=== PATIENT | female | born 1940 | race Caucasian/White ===

== ENCOUNTER 2016-08-01 06:57 | Outpatient (CLI) | payer MEDICARE, OTHER | END 2016-08-01 06:58 | disposition home or self-care (01) | DX: I25.10 Atherosclerotic heart disease of native coronary artery without angina pectoris (principal); I10 Essential (primary) hypertension ==

== ENCOUNTER 2018-07-30 10:36 | Outpatient (CLI) | payer MEDICARE, OTHER ==
--- NOTE | 2018-07-30 11:57 | Mammography Report ---
Reason: MASTALGIA Procedure Date: 07/30/2018 Accession Number: [id number] / [id number] Procedure: DEEP - Diagnostic Dig Bilat CPT Code: FULL RESULT: EXAM: Diagnostic Dig Bilat DATE: 07/30/2018 11:37 AM CLINICAL HISTORY: Diffuse right breast pain for one year. TECHNIQUE: Bilateral CC, MLO views were obtained. COMPARISON: 12/09/2015 through 02/29/2012. FINDINGS: The breasts demonstrate scattered fibroglandular densities bilaterally. There are coarse typically benign calcifications. There are typically benign vascular calcifications. No suspicious calcifications, architectural distortion or masses identified. IMPRESSION: Benign findings RECOMMENDATION: Recommend routine annual Screening mammography unless otherwise clinically indicated. BIRADS CATEGORY 2: Benign findings STANDARD QUALIFYING STATEMENTS: 1. This examination was not reviewed with the aid of Computer-Aided Detection (CAD). 2. A negative or benign imaging report should not delay biopsy if clinically suspicious findings are present. Consider surgical consultation if warrented. More than 5% of cancers are not identified by imaging. 3. Dense breasts may obscure an underlying neoplasm. 4. This examination was reviewed with the aid of 3D imaging (tomography).
== END 2018-07-30 10:37 | disposition home or self-care (01) ==
LOC: DI 10:36
PROVIDERS: ATTEND Physician Assistant Medical
DX: N64.4 Mastodynia (principal)
CPT/HCPCS: 77066

== ENCOUNTER 2018-10-31 08:51 | Outpatient (CLI) | payer MEDICARE, OTHER ==
--- NOTE | 2018-10-31 13:15 | XRAY Report ---
Reason: HIP PAIN,LEFT Procedure Date: 10/31/2018 Accession Number: [id number] / [id number] Procedure: WCP - Hip w/Pelvis 2-3V LT CPT Code: FULL RESULT: EXAM: LEFT HIP RADIOGRAPHY EXAM DATE: 10/31/2018 09:03 AM. CLINICAL HISTORY: Hip pain, left. COMPARISON: 03/06/2008 11:54 AM. TECHNIQUE: AP pelvis and AP of the left hip as well as frog view of the left hip. views. FINDINGS: Bones: Redemonstration of status post right total hip arthroplasty with interval development of marked osseous resorption around the acetabular cup component of the prosthesis. No acute fracture is detected. There is questionable breakthrough of the posterior medial acetabular wall and potential impending fracture, evaluation limited by regional osteopenia. The bones are qualitatively osteopenic; this limits evaluation for underlying fractures or masses. Joints: Moderate narrowing of the left femoral acetabular joint. Soft Tissues: Normal. No soft tissue swelling. IMPRESSION: Osseous resorption surrounding the acetabular cup component is concerning for impending hardware failure and risk for a pathologic fracture. CASIEA The call report notification system was initiated by Dr. Capo Hardwick at 01:05 PM on 10/31/2018. ADDENDUM: 10/31/18 13:21 The above call report findings were discussed with Radha Dias by Dr. Capo Hardwick at 01:21 PM on 10/31/2018. ADDENDUM: 11/06/18 15:46 The addendum is in clarification of the study performed. The study performed is an AP view of the pelvis as well as a frog leg view of the left hip. Given that the patient has a right total hip replacement, an additional AP view showing the distal stem of the right hip prosthesis was also obtained. AP evaluation of the left hip joint is performed based on visualization of the AP pelvis. The above call report findings were discussed with Radha Dias by Dr. Capo Hardwick at 01:21 PM on 10/31/2018.
== END 2018-10-31 08:52 | disposition home or self-care (01) ==
LOC: DI.WCP 08:51
PROVIDERS: ATTEND Physician Assistant Medical
DX: M17.12 Unilateral primary osteoarthritis, left knee (principal); Z96.641 Presence of right artificial hip joint

== ENCOUNTER 2019-01-05 22:33 | Emergency (ER) | payer MEDICARE, OTHER ==
[2019-01-05 23:19] LABS: BILIRUBIN,URINE NEGATIVE (NEGATIVE); GLUCOSE, URINE (UA) NEGATIVE (NEGATIVE); KETONES,URINE (UA) NEGATIVE (NEGATIVE); LEUKOCYTE ESTERASE, URINE LARGE (NEGATIVE); NITRITE,URINE NEGATIVE (NEGATIVE); OCCULT BLOOD,URINE SMALL (NEGATIVE); PH,URINE 6.5 PH (5.0-7.5); PROTEIN,URINE NEGATIVE (NEGATIVE); UROBILINOGEN,URINE 0.2 (NORMAL) E.U./dL (NORMAL)
[2019-01-05 23:21] LABS: BASOPHILS % (AUTO) 0.3 %; EOSINOPHILS # (AUTO) 0.2 10^3/uL (0.0-0.7); EOSINOPHILS % (AUTO) 1.6 %; HGB - HEMOGLOBIN 13.2 g/dL (12.0-16.0); LYMPHOCYTES # (AUTO) 1.6 10^3/uL (1.5-3.5); LYMPHOCYTES % (AUTO) 13.9 %; MEAN CORPUSCULAR HEMOGLOBIN 30.6 pg (27.0-31.0); MEAN CORPUSCULAR HGB CONC 33.4 g/dL (32.0-36.0); MEAN CORPUSCULAR VOLUME 91.4 fL (81.0-99.0); MEAN PLATELET VOLUME 9.1 fL (7.9-10.8); MONOCYTES # (AUTO) 1.5 10^3/uL (0.0-1.0); MONOCYTES % (AUTO) 12.9 %; NEUTROPHILS # (AUTO) 8.2 10^3/uL (1.5-6.6); PLT - PLATELET COUNT 199 10^3/uL (130-450); RED BLOOD COUNT 4.32 10^6/uL (4.20-5.40); RED CELL DISTRIBUTION WIDTH 13.8 % (12.0-15.0); WHITE BLOOD COUNT 11.5 x10^3/uL (4.8-10.8)
[2019-01-05 23:22] LABS: CLARITY,URINE CLEAR (CLEAR)
[2019-01-05 23:25] LABS: BACTERIA,URINE Few /HPF (None Seen); RBC,URINE 0-5 /HPF (0-5); SQUAMOUS EPITHELIAL CELL,UR NONE SEEN (<= Few)
[2019-01-05 23:37] LABS: ALBUMIN 4.2 g/dL (3.2-5.5); ALBUMIN/GLOBULIN RATIO 1.4 (1.0-2.2); BILIRUBIN,TOTAL 1.2 mg/dL (0.2-1.0); CALCIUM 9.4 mg/dL (8.5-10.3); CREATININE 0.8 mg/dL (0.4-1.0); TOTAL PROTEIN 7.2 g/dL (6.7-8.2)
--- NOTE | 2019-01-06 | ED Physician Documentation ---
PD HPI ABD PAIN - Stated complaint Stated Complaint: LOWER ABD CRAMPING - Chief complaint Chief Complaint: Abd Pain - History obtained from History obtained from: Patient - History of Present Illness Timing - onset: Yesterday (30 hours ago) Timing - details: Waxing and waning Pain level max: 6 Pain level now: 2 Quality: Pain Location: All over / everywhere Radiation: No: Chest, , Lower back, Left flank, Left shoulder, Right flank, Right shoulder, Upper back Improved by: Other (nothing) Worsened by: Other (no apparent exacerbating factors) Associated symptoms: No: Fever, Nausea, Vomiting, Diarrhea, Constipation Similar symptoms before: Has not had sx before Recently seen: Not recently seen - Additional information Additional information: c/o waves of abdominal cramping pain, waxing and waning since 24-36 hours ago. no inciting event, and no apparent exacerbating or ameliorating factors. Review of Systems Constitutional: reports: Reviewed and negative Cardiac: reports: Reviewed and negative Respiratory: reports: Reviewed and negative GI: reports: Abdominal Pain. denies: Abdominal Swelling, Nausea, Vomiting, Constipation, Diarrhea : denies: Dysuria, Frequency Skin: denies: Rash Musculoskeletal: denies: Back pain PD PAST MEDICAL HISTORY - Past Medical History Past Medical History: Yes Cardiovascular: High cholesterol, Coronary artery disease, [place], Other Respiratory: None Endocrine/Autoimmune: None GI: None : None HEENT: None Psych: None Musculoskeletal: Other Derm: None - Past Surgical History Past Surgical History: Yes General: Colonoscopy Ortho: Hip replacement Cardiovascular: Coronary stent, Valve replacement, Cardiac catheterization HEENT: Tonsil/Adenoidectomy - Present Medications Home Medications: Ambulatory Orders Medication Instructions Recorded Confirmed Metoprolol Succinate [Toprol Xl] 12.5 mg PO DAILY 03/11/13 01/05/19 Aspirin [Aspir 81] 2 tab PO BID 07/08/15 01/05/19 Lisinopril 2.5 mg PO DAILY 07/08/15 01/05/19 Triamterene/Hydrochlorothiazid 1 tab PO DAILY 12/04/15 01/05/19 [Maxzide 37.5 mg-25 mg Tablet] Amox/Clav 875/125 [Augmentin] 1 each PO Q12H #13 tablet 01/06/19 - Allergies Allergies/Adverse Reactions: Allergies Allergy/AdvReac Type Severity Reaction Status Date / Time No Known Drug Allergies Allergy Verified 01/05/19 22:43 - Social History Does the pt smoke?: No Smoking Status: Never smoker Does the pt drink ETOH?: No Does the pt have substance abuse?: No - Immunizations Immunizations are current?: Yes - POLST Patient has POLST: No PD ED PE NORMAL - Vitals Vital signs reviewed: Yes - General General: Alert and oriented X 3, No acute distress, Well developed/nourished - HEENT HEENT: Moist mucous membranes - Neck Neck: Supple, no meningeal sign - Cardiac Cardiac: RRR, No murmur, No gallop, No rub - Respiratory Respiratory: No respiratory distress, Clear bilaterally - Abdomen Abdomen: Normal bowel sounds, Soft, Non tender, Non distended, No organomegaly - Back Back: No CVA TTP - Derm Derm: Normal color, Warm and dry, No rash - Extremities Extremities: No edema Results - Vitals Vitals: Oxygen O2 Source Room air - Labs Labs: Microbiology 01/05/19 23:11 Urine Culture - Final Urine,Clean Catch >100,000 COLONIES/ML Polymicrobial growth including potential pathogens. This is suggestive of skin or other contamination. Laboratory Tests 01/05/19 01/05/19 01/05/19 22:15 22:15 23:11 WBC 11.5 H RBC 4.32 Hgb 13.2 Hct 39.5 MCV 91.4 MCH 30.6 MCHC 33.4 RDW 13.8 Plt Count 199 MPV 9.1 Neut # (Auto) 8.2 H Lymph # (Auto) 1.6 [place] # (Auto) 1.5 H Eos # (Auto) 0.2 Baso # (Auto) 0.0 Absolute Nucleated RBC 0.00 Nucleated RBC % 0.0 Sodium 133 L Potassium 3.6 Chloride 96 L Carbon Dioxide 24 Anion Gap 13.0 BUN 15 Creatinine 0.8 Estimated GFR (MDRD) 70 L Glucose 113 H Calcium 9.4 Total Bilirubin 1.2 H AST 29 ALT 20 Alkaline Phosphatase 52 Total Protein 7.2 Albumin 4.2 Globulin 3.0 Albumin/Globulin Ratio 1.4 Lipase 36 Urine Color YELLOW Urine Clarity CLEAR Urine pH 6.5 Ur Specific [place] <=1.005 Urine Protein NEGATIVE Urine Glucose (UA) NEGATIVE Urine Ketones NEGATIVE Urine Occult Blood SMALL H Urine Nitrite NEGATIVE Urine Bilirubin NEGATIVE Urine Urobilinogen 0.2 (NORMAL) Ur Leukocyte Esterase LARGE H Urine RBC 0-5 Urine WBC 11-25 H Ur Squamous Epith Cells NONE SEEN Urine Bacteria Few Ur Microscopic Review INDICATED Urine Culture Comments INDICATED PD MEDICAL DECISION MAKING - ED course Complexity details: reviewed results, re-evaluated patient, considered differential, d/w patient, d/w family ED course: nontender abdominal exam and NAD during H+P. minimal leukocytosis, otherwise nonspecific/unremarkable serum tests. UA suggests UTI and will treat for UTI although I explained to patient that her symptoms do not particularly suggest this as the etiology of her symptoms. she has no RLQ tenderness, and pain is episodic, making appendicitis unlikely. diverticulitis considered, but she has little/no tenderness on exam (on one exam, indicated minimal TTP LUQ, but not on subsequent reexams). the augmentin should provide coverage for urinary pathogens as well as possible diverticulitis, and imaging can be deferred until/unless symptoms persist, recur, or worsen. Departure - Departure Disposition: 01 Home, Self Care Clinical Impression: Urinary tract infection, Abdominal pain Condition: Good Health Concerns: abdominal pain Plan of Treatment: antibiotic as prescribed Care Goals: resolution of symptoms Assessment: see diagnoses Instructions: ED Abdominal Pain Unkn Cause, ED UTI Cystitis Female Follow-Up: Radha Dias PA-C [Primary Care Provider] - (3-4 days if symptoms have not resolved) Prescriptions: Amox/Clav 875/125 [Augmentin] 1 each PO Q12H #13 tablet Discharge Date/Time: 01/06/19 00:32
[2019-01-06] MEDS ORDERED: AMOX/CLAV 875 MG/125 MG TABLET PO STA (00:12)
[2019-01-06 00:32] VITALS: BP 153/74
== END 2019-01-06 00:32 | disposition home or self-care (01) ==
LOC: ED 22:33
DX: N39.0 Urinary tract infection, site not specified (principal); I25.10 Atherosclerotic heart disease of native coronary artery without angina pectoris; E78.00 Pure hypercholesterolemia, unspecified; I25.2 Old myocardial infarction; Z95.2 Presence of prosthetic heart valve; Z96.649 Presence of unspecified artificial hip joint; Z79.82 Long term (current) use of aspirin
CPT/HCPCS: 36415; 80053; 81001; 83690; 85025; 87086; 99283; A9270; 81003

== ENCOUNTER 2019-05-16 11:59 | Outpatient (CLI) | payer MEDICARE, OTHER ==
--- NOTE | 2019-05-17 14:05 | XRAY Report ---
Reason: RIGHT HIP PAIN Procedure Date: 05/16/2019 Accession Number: [id number] / [id number] Procedure: WCP - Hip 1 View RT CPT Code: Final Report FULL RESULT: EXAM: RIGHT HIP RADIOGRAPHY EXAM DATE: 05/16/2019 01:58 PM. CLINICAL HISTORY: RIGHT HIP PAIN. COMPARISON: HIP W/PELVIS 2-3V LT 10/31/2018 8:46 AM. TECHNIQUE: 2 views. FINDINGS: Postoperative changes from a right hip arthroplasty are again seen. No periprosthetic lucency is seen to suggest loosening. The left hip is seated. No acute fracture or dislocation is present. Phleboliths are seen in the pelvis. Surgical clips are seen in the medial left thigh. The visible bowel gas pattern is nonobstructive. The sacroiliac joints are within normal limits. IMPRESSION: Postoperative changes from the right hip arthroplasty. No acute fracture or dislocation. RADIA
== END 2019-05-16 23:59 | disposition home or self-care (01) ==
LOC: DI.WCP 11:59
PROVIDERS: ATTEND Physician Assistant Medical
DX: M25.551 Pain in right hip (principal); Z96.641 Presence of right artificial hip joint

== ENCOUNTER 2019-07-15 08:00 | Outpatient (CLI) | payer MEDICARE, OTHER ==
[2019-07-15 18:17] LABS: BASOPHILS % (AUTO) 0.7 %; EOSINOPHILS # (AUTO) 0.2 10^3/uL (0.0-0.7); EOSINOPHILS % (AUTO) 4.6 %; HGB - HEMOGLOBIN 13.9 g/dL (12.0-16.0); LYMPHOCYTES # (AUTO) 1.2 10^3/uL (1.5-3.5); LYMPHOCYTES % (AUTO) 26.3 %; MEAN CORPUSCULAR HEMOGLOBIN 31.5 pg (27.0-31.0); MEAN CORPUSCULAR HGB CONC 33.3 g/dL (32.0-36.0); MEAN CORPUSCULAR VOLUME 94.6 fL (81.0-99.0); MEAN PLATELET VOLUME 10.1 fL (7.9-10.8); MONOCYTES # (AUTO) 0.7 10^3/uL (0.0-1.0); MONOCYTES % (AUTO) 14.8 %; NEUTROPHILS # (AUTO) 2.4 10^3/uL (1.5-6.6); NEUTROPHILS % (AUTO) 53.4 %; PLT - PLATELET COUNT 198 10^3/uL (130-450); RED BLOOD COUNT 4.41 10^6/uL (4.20-5.40); RED CELL DISTRIBUTION WIDTH 13.9 % (12.0-15.0); WHITE BLOOD COUNT 4.5 x10^3/uL (4.8-10.8)
[2019-07-15 18:49] LABS: ALBUMIN/GLOBULIN RATIO 1.5 (1.0-2.2); BILIRUBIN,TOTAL 0.8 mg/dL (0.2-1.0); CALCIUM 9.2 mg/dL (8.5-10.3); CREATININE 0.9 mg/dL (0.4-1.0); T4 (THYROXINE) 6.18 ug/dL (6.09-12.23); TOTAL PROTEIN 6.6 g/dL (6.7-8.2)
[2019-07-15 18:51] LABS: THYROID STIMULATING HORMONE 2.09 uIU/mL (0.34-5.60)
== END 2019-07-15 23:59 | disposition home or self-care (01) ==
LOC: LAB.WCP 08:00
PROVIDERS: ATTEND Family Medicine
DX: I25.10 Atherosclerotic heart disease of native coronary artery without angina pectoris (principal); R53.1 Weakness; R26.81 Unsteadiness on feet; E03.9 Hypothyroidism, unspecified; I10 Essential (primary) hypertension
CPT/HCPCS: 36415; 80053; 82607; 82746; 83735; 84100; 84436; 84443; 84480; 85025

== ENCOUNTER 2019-07-17 13:01 | Outpatient (CLI) | payer MEDICARE, OTHER ==
[2019-07-17] MEDS ORDERED: GADOBUTROL 7.5 MMOL/7.5 ML VIAL ONE (13:18)
[2019-07-17] MEDS ORDERED: GADOBUTROL 7.5 MMOL/7.5 ML VIAL IVP ONE (14:01)
--- NOTE | 2019-07-17 15:56 | MRI Report ---
Reason: BALANCE PROBLEM, WEAKNESS, FATIGUE, SLEEP APNEA Procedure Date: 07/17/2019 Accession Number: [id number] / [id number] Procedure: MRI - Brain W/WO CPT Code: Final Report FULL RESULT: EXAM: MRI BRAIN WITHOUT AND WITH CONTRAST EXAM DATE: 07/17/2019 02:16 PM. CLINICAL HISTORY: Balance problem, weakness, fatigue, sleep apnea. COMPARISON: MRI BRAIN 07/01/2008. TECHNIQUE: Multiplanar, multisequence T1-weighted and fluid-sensitive MR sequences of the brain were performed before and after administration of intravenous contrast. Sequences optimized for routine evaluation. Other: None. IV Contrast: 7 mL Gadavist. FINDINGS: Brain Volume: Normal for age. Parenchyma: No acute hemorrhage, mass, or infarct. Mild scattered punctate foci of T2/FLAIR bright white matter signal is seen in the deep and subcortical regions of the cerebral hemispheres. This has progressed compared to prior study. No abnormal cortical signal intensity is identified. No abnormal enhancement. No abnormal dural thickening or enhancement is appreciated. Ventricles/Cisterns: No hydrocephalus. No abnormal extra-axial fluid collection or hemorrhage. Orbits: Symmetric and unremarkable. Sella Turcica: The pituitary gland, cavernous sinuses, suprasellar cistern and optic chiasm are unremarkable. IAC: Symmetric and unremarkable. Vasculature: Normal signal flow void is seen in the major arterial structures at the skull base. The dural sinuses are patent and enhance normally. The right transverse sinus and jugular bulb are dominant. Sinuses: No acute sinus disease. Mild dependent mucosal thickening is seen in the pterygoid recess of the right sphenoid sinus. Bones: No focal pathologic appearing marrow signal changes. Other: The visualized nasopharynx and infratemporal fossa are unremarkable. IMPRESSION: 1. No acute intracranial abnormality. No acute infarct, mass, hemorrhage, or abnormal enhancement. 2. Mild scattered foci of T2/FLAIR bright white matter signal noted in the cerebral hemispheres. This is nonspecific. This can be seen secondary to small-vessel ischemic change. RADIA
== END 2019-07-17 13:02 | disposition home or self-care (01) ==
LOC: DI 13:01
PROVIDERS: ATTEND Family Medicine
DX: R27.9 Unspecified lack of coordination (principal); R53.1 Weakness; R53.83 Other fatigue; G47.30 Sleep apnea, unspecified
CPT/HCPCS: 70553; A9585

== ENCOUNTER 2019-07-26 09:18 | Outpatient (CLI) | payer MEDICARE, OTHER ==
--- NOTE | 2019-07-26 15:40 | XRAY Report ---
Reason: RIGHT KNEE PAIN Procedure Date: 07/26/2019 Accession Number: [id number] / [id number] Procedure: WCP - Knee 3 View RT CPT Code: Final Report FULL RESULT: EXAM: RIGHT KNEE RADIOGRAPHY EXAM DATE: 07/26/2019 09:35 AM. CLINICAL HISTORY: RIGHT KNEE PAIN. COMPARISON: Right knee radiography from 08/03/2015. TECHNIQUE: 3 views. FINDINGS: Bones: Marginal osteophytes at the femoral condyles, tibial plateau, and patella. The bones are osteopenic. No acute fracture or bone lesions. Sclerosis at the lateral tibial plateau and lateral femoral condyle. Joints: Chondrocalcinosis at the medial and lateral compartments. Mild to moderate lateral compartment narrowing. No subluxations. Small joint effusion. Soft Tissues: Normal. No soft tissue swelling. IMPRESSION: Right knee osteoarthritis which is most significant at the lateral compartment. Kellgren Kings Grade 3. Kellgren and Kings classification of osteoarthritis: Grade 0: no radiographic features of osteoarthritis are present Grade 1: doubtful joint space narrowing (JSN) and possible osteophytic lipping Grade 2: definite osteophytes and possible JSN on anteroposterior weight-bearing radiograph Grade 3: multiple osteophytes, definite JSN, sclerosis, possible bony deformity Grade 4: large osteophytes, marked JSN, severe sclerosis and definite bony deformity RADIA
== END 2019-07-26 23:59 | disposition home or self-care (01) ==
LOC: DI.WCP 09:18
PROVIDERS: ATTEND Family Medicine
DX: M17.11 Unilateral primary osteoarthritis, right knee (principal)

== ENCOUNTER 2020-03-25 15:44 | Outpatient (CLI) | payer MEDICARE, OTHER ==
--- NOTE | 2020-03-25 16:26 | XRAY Report ---
PROCEDURE: Shoulder 3 View RT INDICATIONS: SHOULDER IMPINGEMENT SYNDROME TECHNIQUE: 3 views of the shoulder were acquired. COMPARISON: None. FINDINGS: Bones: No fractures or dislocations. Mild acromioclavicular joint and glenohumeral joint osteoarthri tic changes are seen. No suspicious bony lesions. Visualized ribs appear intact. Soft tissues: No suspicious soft tissue calcifications. IMPRESSION: Mild right shoulder joint osteoarthritis. No fracture or dislocation. Reviewed by: Az Heard MD on 03/25/2020 4:24 PM PDT Approved by: Az Heard MD on 03/25/2020 4:24 PM PDT Station ID: [id number]
== END 2020-03-25 15:45 | disposition home or self-care (01) ==
LOC: DI 15:44
PROVIDERS: ATTEND Physician Assistant Medical
DX: M75.41 Impingement syndrome of right shoulder (principal); M19.011 Primary osteoarthritis, right shoulder

== ENCOUNTER 2021-02-05 08:00 | Outpatient (CLI) | payer MEDICARE, OTHER ==
[2021-02-05 18:03] LABS: BUN - BLOOD UREA NITROGEN 18 mg/dL (6-20); CALCIUM 9.5 mg/dL (8.5-10.3); CARBON DIOXIDE - CO2 27 mmol/L (21-32); CHLORIDE 95 mmol/L (101-111); CHOLESTEROL 174 mg/dL; CREATININE 0.9 mg/dL (0.4-1.0); GFR - MDRD 61 (>89); GLUCOSE 98 mg/dL (70-100); HDL CHOLESTEROL 88 mg/dL; LDL CHOLESTEROL,CALCULATED 76 mg/dL; LDL/HDL RATIO 0.9 (<4.4); SODIUM 131 mmol/L (135-145); TRIGLYCERIDES 52 mg/dL; VLDL CHOLESTEROL 10 mg/dL
[2021-02-05 18:14] LABS: THYROID STIMULATING HORMONE 2.48 uIU/mL (0.34-5.60)
== END 2021-02-05 23:59 | disposition home or self-care (01) ==
LOC: LAB.WCP 08:00
PROVIDERS: ATTEND Physician Assistant Medical
DX: E78.5 Hyperlipidemia, unspecified (principal); E03.9 Hypothyroidism, unspecified
CPT/HCPCS: 36415; 80048; 80061; 83721; 84443

== ENCOUNTER 2021-04-05 09:34 | Outpatient (CLI) | payer MEDICARE, OTHER ==
[2021-04-05 13:32] LABS: ALBUMIN/GLOBULIN RATIO 1.5 (1.0-2.2); ALKALINE PHOSPHATASE 47 IU/L (42-121); ALT ALANINE AMINOTRANSFERASE 17 IU/L (10-60); AST ASPARTATE AMINOTRANSFERASE 27 IU/L (10-42); BILIRUBIN,TOTAL 0.7 mg/dL (0.2-1.0); BUN - BLOOD UREA NITROGEN 21 mg/dL (6-20); CALCIUM 9.6 mg/dL (8.5-10.3); CARBON DIOXIDE - CO2 29 mmol/L (21-32); CHLORIDE 95 mmol/L (101-111); CHOLESTEROL 160 mg/dL; CREATININE 0.9 mg/dL (0.4-1.0); GFR - MDRD 61 (>89); GLUCOSE 96 mg/dL (70-100); HDL CHOLESTEROL 82 mg/dL; LDL CHOLESTEROL,CALCULATED 67 mg/dL; LDL/HDL RATIO 0.8 (<4.4); POTASSIUM 3.7 mmol/L (3.5-5.0); SODIUM 133 mmol/L (135-145); TOTAL PROTEIN 6.7 g/dL (6.7-8.2); TRIGLYCERIDES 54 mg/dL; VLDL CHOLESTEROL 11 mg/dL
[2021-04-05 13:46] LABS: THYROID STIMULATING HORMONE 4.34 uIU/mL (0.34-5.60)
[2021-04-05 13:49] LABS: FREE T4 (FREE THYROXINE) 0.89 ng/dL (0.58-1.64)
== END 2021-04-05 23:59 | disposition home or self-care (01) ==
LOC: LAB.WCP 09:34
DX: I25.10 Atherosclerotic heart disease of native coronary artery without angina pectoris (principal); R53.83 Other fatigue; E78.5 Hyperlipidemia, unspecified
CPT/HCPCS: 36415; 80053; 80061; 83721; 84439; 84443

== ENCOUNTER 2021-05-20 15:08 | Outpatient (CLI) | payer MEDICARE, OTHER ==
--- NOTE | 2021-05-21 07:51 | Mammography Report ---
BILATERAL DIGITAL SCREENING MAMMOGRAM: 05/20/2021 CLINICAL: Family history of breast cancer. Routine screening. Comparison is made to exams dated: 07/30/2018 mammogram, 12/09/2015 mammogram, 08/27/2014 mammogram, mammogram, 02/29/2012 mammogram - [facility], and 02/26/2002 mammogram - [facility]. The tissue of both breasts is predominantly fatty. No significant masses, calcifications, or other findings are seen in either breast. There has been no significant interval change. IMPRESSION: NEGATIVE There is no mammographic evidence of malignancy. A 1 year screening mammogram is recommended. This exam was interpreted at Station ID: [id number]. NOTE: For mammograms, a report in lay terms will be sent to the patient. Approximately 15% of breast malignancies will not be visualized mammographically. In the management of a palpable breast mass, a negative mammogram must not discourage biopsy of a clinically suspicious lesion. Electronically Signed By: Mario Love M.D. atmatt/cheli:05/20/2021 15:58:11 ACR BI-RADS Category 1: Negative 3341F PARENCHYMAL PATTERN: (F) - The breast(s) demonstrate(s) diffuse fatty replacement. BI-RADS CATEGORY: (1) - 1 RECOMMENDATION: (ANNUAL) - Recommend routine annual screening mammography. [id number] 1 year screening LATERALITY: (B)
== END 2021-05-20 15:09 | disposition home or self-care (01) ==
LOC: DI.N 15:08
DX: Z12.31 Encounter for screening mammogram for malignant neoplasm of breast (principal); Z80.3 Family history of malignant neoplasm of breast

== ENCOUNTER 2021-08-03 14:26 | Outpatient (CLI) | payer MEDICARE, OTHER ==
[2021-08-03 19:08] LABS: THYROID STIMULATING HORMONE 0.42 uIU/mL (0.34-5.60)
== END 2021-08-03 14:27 | disposition home or self-care (01) ==
LOC: LAB.N 14:26
PROVIDERS: ATTEND Physician Assistant Medical
DX: E03.9 Hypothyroidism, unspecified (principal)
CPT/HCPCS: 36415; 84443

== ENCOUNTER 2022-11-01 11:33 | Outpatient (CLI) | payer MEDICARE, OTHER ==
--- NOTE | 2022-11-02 12:11 | Mammography Report ---
BILATERAL DIGITAL SCREENING MAMMOGRAM: 11/01/2022 CLINICAL: Family history of breast cancer. Routine screening. Comparison is made to exams dated: 05/20/2021 mammogram, 07/30/2018 mammogram, 12/09/2015 mammogram, mammogram, 06/14/2013 mammogram, and 02/29/2012 mammogram - [facility]. Both breasts are almost entirely fatty (category a/<25% glandular tissue). No significant masses, calcifications, or other findings are seen in either breast. There has been no significant interval change. IMPRESSION: NEGATIVE There is no mammographic evidence of malignancy. A 1 year screening mammogram is recommended. Based on the Tyrer Cuzick model (a risk assessment model) the patients lifetime risk is 2.7% and her 10 year risk is 0.0%. According to the ACR, ACS, and NCCN guidelines, an annual breast MRI exam priti g with mammogram is recommended if the patients lifetime risk is 20% or greater. This exam was interpreted at Station ID: [id number]. NOTE: For mammograms, a report in lay terms will be sent to the patient. Approximately 15% of breast malignancies will not be visualized mammographically. In the management of a palpable breast mass, a negative mammogram must not discourage biopsy of a clinically suspicious lesion. Electronically Signed By: Carole castro/cheli:11/01/2022 15:19:47 letter sent: No_Letter ACR BI-RADS Category 1: Negative 3341F PARENCHYMAL PATTERN: (F) - The breast(s) demonstrate(s) diffuse fatty replacement. BI-RADS CATEGORY: (1) - 1 Mammogram [id number] 1 year screening LATERALITY: (B)
[2022-11-02 15:06] VITALS: BP 109/67
== END 2022-11-01 11:34 | disposition home or self-care (01) ==
LOC: DI.N 11:33
DX: Z12.31 Encounter for screening mammogram for malignant neoplasm of breast (principal); Z80.3 Family history of malignant neoplasm of breast

== ENCOUNTER 2022-11-16 10:56 | Outpatient (CLI) | payer MEDICARE, OTHER ==
[2022-11-16 17:40] LABS: BASOPHILS % (AUTO) 0.9 %; EOSINOPHILS # (AUTO) 0.3 10^3/uL (0.0-0.7); EOSINOPHILS % (AUTO) 6.7 %; HCT - HEMATOCRIT 35.8 % (37.0-47.0); HGB - HEMOGLOBIN 12.3 g/dL (12.0-16.0); LYMPHOCYTES # (AUTO) 1.4 10^3/uL (1.5-3.5); LYMPHOCYTES % (AUTO) 31.9 %; MEAN CORPUSCULAR HGB CONC 34.4 g/dL (32.0-36.0); MEAN PLATELET VOLUME 9.6 fL (7.9-10.8); MONOCYTES # (AUTO) 0.7 10^3/uL (0.0-1.0); MONOCYTES % (AUTO) 15.8 %; NEUTROPHILS % (AUTO) 44.5 %; PLT - PLATELET COUNT 219 10^3/uL (130-450); RED BLOOD COUNT 3.73 10^6/uL (4.20-5.40); RED CELL DISTRIBUTION WIDTH 13.2 % (12.0-15.0); WHITE BLOOD COUNT 4.5 x10^3/uL (4.8-10.8)
[2022-11-16 17:51] LABS: ALBUMIN 4.1 g/dL (3.2-5.5); ALBUMIN/GLOBULIN RATIO 1.6 (1.0-2.2); ALKALINE PHOSPHATASE 39 IU/L (42-121); ALT ALANINE AMINOTRANSFERASE 17 IU/L (10-60); AST ASPARTATE AMINOTRANSFERASE 31 IU/L (10-42); BILIRUBIN,TOTAL 0.6 mg/dL (0.2-1.0); BUN - BLOOD UREA NITROGEN 16 mg/dL (6-20); CALCIUM 9.4 mg/dL (8.5-10.3); CARBON DIOXIDE - CO2 28 mmol/L (21-32); CHLORIDE 98 mmol/L (101-111); CHOL/HDL RATIO 1.7 (<4.4); CHOLESTEROL 152 mg/dL; CREATININE 0.8 mg/dL (0.4-1.0); GFR - MDRD 69 (>89); GLUCOSE 95 mg/dL (70-100); HDL CHOLESTEROL 87 mg/dL; LDL CHOLESTEROL,CALCULATED 55 mg/dL; LDL/HDL RATIO 0.6 (<4.4); POTASSIUM 3.7 mmol/L (3.5-5.0); SODIUM 134 mmol/L (135-145); TOTAL PROTEIN 6.7 g/dL (6.7-8.2); TRIGLYCERIDES 50 mg/dL; VLDL CHOLESTEROL 10 mg/dL
[2022-11-16 18:07] LABS: THYROID STIMULATING HORMONE 1.15 uIU/mL (0.34-5.60)
[2022-11-16 18:27] LABS: ESTIMATED AVERAGE GLUCOSE 108 mg/dL (70-100); HEMOGLOBIN A1c% 5.4 % (4.27-6.07)
== END 2022-11-16 10:57 | disposition home or self-care (01) ==
LOC: LAB.N 10:56
PROVIDERS: ATTEND Internal Medicine Cardiovascular Disease
DX: I10 Essential (primary) hypertension (principal); I25.119 Atherosclerotic heart disease of native coronary artery with unspecified angina pectoris; E78.5 Hyperlipidemia, unspecified; E03.9 Hypothyroidism, unspecified; R73.9 Hyperglycemia, unspecified
CPT/HCPCS: 36415; 80053; 80061; 83036; 83721; 84443; 85025

== ENCOUNTER 2023-02-08 17:45 | Outpatient (CLI) | payer MEDICARE, OTHER ==
[2023-02-08 20:38] LABS: BASOPHILS % (AUTO) 0.5 %; EOSINOPHILS # (AUTO) 0.3 10^3/uL (0.0-0.7); EOSINOPHILS % (AUTO) 4.5 %; HGB - HEMOGLOBIN 14.2 g/dL (12.0-16.0); LYMPHOCYTES # (AUTO) 1.6 10^3/uL (1.5-3.5); LYMPHOCYTES % (AUTO) 27.3 %; MEAN CORPUSCULAR HEMOGLOBIN 31.7 pg (27.0-31.0); MEAN CORPUSCULAR HGB CONC 33.8 g/dL (32.0-36.0); MEAN CORPUSCULAR VOLUME 93.8 fL (81.0-99.0); MEAN PLATELET VOLUME 9.8 fL (7.9-10.8); MONOCYTES % (AUTO) 17.1 %; NEUTROPHILS % (AUTO) 50.4 %; PLT - PLATELET COUNT 209 10^3/uL (130-450); RED BLOOD COUNT 4.48 10^6/uL (4.20-5.40); RED CELL DISTRIBUTION WIDTH 12.6 % (12.0-15.0)
[2023-02-08 20:49] LABS: ALBUMIN 4.3 g/dL (3.2-5.5); ALBUMIN/GLOBULIN RATIO 1.5 (1.0-2.2); BILIRUBIN,TOTAL 0.6 mg/dL (0.2-1.0); CALCIUM 10.1 mg/dL (8.5-10.3); CREATININE 0.9 mg/dL (0.6-1.3); POTASSIUM 3.8 mmol/L (3.5-4.5); TOTAL PROTEIN 7.1 g/dL (6.4-8.9)
[2023-02-08 20:49] LABS: CHOL/HDL RATIO 1.9 (<4.4); CHOLESTEROL 145 mg/dL; HDL CHOLESTEROL 75 mg/dL; LDL CHOLESTEROL,CALCULATED 54 mg/dL; LDL/HDL RATIO 0.7 (<4.4); TRIGLYCERIDES 78 mg/dL (48-352); VLDL CHOLESTEROL 16 mg/dL
[2023-02-08 21:02] LABS: THYROID STIMULATING HORMONE 0.93 uIU/mL (0.34-5.60)
== END 2023-02-08 18:00 | disposition home or self-care (01) ==
LOC: LAB.N 17:45
PROVIDERS: ATTEND Registered Nurse
DX: K91.1 Postgastric surgery syndromes (principal); E78.5 Hyperlipidemia, unspecified; E03.9 Hypothyroidism, unspecified; E83.118 Other hemochromatosis; R19.7 Diarrhea, unspecified
CPT/HCPCS: 36415; 80053; 80061; 83690; 83721; 84443; 85025

== ENCOUNTER 2023-02-13 08:00 | Outpatient (CLI) | payer MEDICARE, OTHER ==
[2023-02-15 14:09] LABS: GIARDIA LAMBLIA AG EIA Negative (Negative)
== END 2023-02-13 23:59 | disposition home or self-care (01) ==
LOC: LAB.N 08:00
PROVIDERS: ATTEND Registered Nurse
DX: K91.1 Postgastric surgery syndromes (principal); R19.7 Diarrhea, unspecified
CPT/HCPCS: 87045; 87046; 87177; 87329; 87427